=== PATIENT | female | born 1990 | race Caucasian/White ===

== ENCOUNTER 2016-04-11 20:50 | Inpatient (IN) | payer MEDICAID ==
[2016-04-11] MEDS ORDERED: IOPAMIDOL 300 (61%) 100 ML VIAL IV ONE (20:51)
[2016-04-12 00:53] LABS: ABSOLUTE NEUTROPHIL COUNT 16.9 K/mm3 (1.8-7.7); BASO # 0.1 K/mm3 (0.0-0.2); BASO % 0.3 % (0.2-1.0); EOS # 0.3 (0.0-0.5); HEMATOCRIT 37.9 % (37.0-47.0); HEMOGLOBIN 12.3 gm/l (12.0-16.0); IMM NEUT # 0.1 K/mm3 (0-0.2); IMM NEUT% 0.4 % (0-1); LYMPH # 5.5 (1.0-4.8); LYMPH % 22.2 % (15-45); MEAN CELL VOLUME 91.3 fl (81.0-99.0); MEAN CORPUSCULAR HEMOGLOBIN 29.6 pg (27.0-31.0); MEAN CORPUSCULAR HGB CONC 32.5 g/dl (33.0-37.0); MEAN PLATELET VOLUME 9.7 fl (7.4-10.4); MONO # 2.1 (0.0-0.8); MONO % 8.3 % (4-12); NEUT % 67.8 % (43-75); PLATELET COUNT 345 K/mm3 (130-400); RED CELL DISTRIBUTION WIDTH 13.8 % (11.5-14.5)
[2016-04-12 01:06] LABS: ALBUMIN 3.3 gm/dL (3.5-5.7); CALCIUM 10.1 mg/dL (8.6-10.3)
[2016-04-12] MEDS ORDERED: ONDANSETRON 4 MG/2ML 2 ML VIAL ONE (01:10)
[2016-04-12] MEDS ORDERED: CLINDAMYCIN PHOSPHATE 600 MG/4 ML VIAL ONE (01:11)
[2016-04-12] MEDS ORDERED: SODIUM CHLORIDE 0.9% 100 ML IV ONE ×3 (01:12→09:42)
[2016-04-12] MEDS ORDERED: LACTATED RINGERS 1,000 ML ONE (01:17)
[2016-04-12 01:50] LABS: BAND 0 % (0-10); BASOPHIL 1 % (0-1); EOSINOPHIL 0 % (1-3); LYMPHOCYTE 23 % (15-45); MONOCYTE 7 % (4-12); NEUTROPHILS 69 % (43-75); PLATELET ESTIMATE NORMAL (NORMAL); TOTAL CELLS COUNTED 100
[2016-04-12] MEDS ORDERED: HYDROMORPHONE HCL 1 MG/ML SYRINGE ONE (02:20)
[2016-04-12] MEDS ORDERED: VANCOMYCIN HCL 1 G/20 ML VIAL ONE (02:47)
[2016-04-12] MEDS ORDERED: D5W 0 ML IV ONE (02:47)
[2016-04-12] MEDS ORDERED: SODIUM CHLORIDE 0.9% 250 ML IV ONE (02:49)
[2016-04-12] MEDS ORDERED: ONDANSETRON 4 MG/2ML 2 ML VIAL IV PRN (05:01)
[2016-04-12] MEDS ORDERED: ACETAMINOPHEN 325 MG TABLET PO PRN (05:01)
[2016-04-12] MEDS ORDERED: HYDROMORPHONE HCL 1 MG/ML SYRINGE IV PRN (05:01)
[2016-04-12] MEDS ORDERED: BLISTEX LIPSTICK 1 EACH TP PRN ×2 (05:01→07:46)
[2016-04-12] MEDS ORDERED: MENTHOL/CETYLPYRD 1 EACH LOZENGE PO PRN ×2 (05:01→07:46)
[2016-04-12] MEDS ORDERED: PIPERACILLIN SODIUM/TAZOBACTAM 4.5 G VIAL IV ONE (05:09)
[2016-04-12] MEDS ORDERED: SODIUM CHLORIDE 0.9% IV SCH (05:15)
[2016-04-12] MEDS ORDERED: VANCOMYCIN HCL IV SCH (05:15)
[2016-04-12] MEDS ORDERED: DIPHTH,PERTUSS(ACELL),TET VAC 0.5 ML VIAL IM V ONE (05:45)
[2016-04-12 06:08] LABS: SPECIFIC GRAVITY 1.015 (1.001-1.030); URINE BILIRUBIN NEGATIVE (NEGATIVE); URINE BLOOD TRACE (NEGATIVE); URINE GLUCOSE (UA) NEGATIVE (NEGATIVE); URINE LEUKOCYTE ESTERASE TRACE (NEGATIVE); URINE NITRITE NEGATIVE (NEGATIVE); URINE PROTEIN 1+ (NEGATIVE); URINE UROBILINOGEN NORMAL (0-1 mg/dl)
[2016-04-12 06:10] LABS: HCG,QUALITATIVE URINE NEGATIVE; URINE APPEARANCE SL CLOUDY; URINE COLOR YELLOW
[2016-04-12 06:14] LABS: URINE BACTERIA 4+; URINE EPITHELIAL CELLS 20-30 /hpf; URINE WBC 15-20 /hpf
[2016-04-12] MEDS ORDERED: FENTANYL 5 ML ONE (06:51)
[2016-04-12] MEDS ORDERED: EPHEDRINE SULFATE UD SYR 25 MG 25 MG/5 ML SYRINGE IV ONE (07:10)
[2016-04-12] MEDS ORDERED: MORPHINE SULFATE 4 MG/ML SYRINGE IV PRN (07:33)
[2016-04-12] MEDS ORDERED: LORAZEPAM 2 MG/ML 1ML SDV ONE (07:42)
[2016-04-12] MEDS ORDERED: LACTATED RINGERS 1,000 ML IV SCH (07:45)
[2016-04-12] MEDS ORDERED: LORAZEPAM 2 MG/ML 1ML SDV IM PRN (07:46)
[2016-04-12] MEDS ORDERED: LORAZEPAM 2 MG/ML 1ML SDV IV PRN (07:48)
[2016-04-12] MEDS ORDERED: CHLORDIAZEPOXIDE HCL 10 MG CAPSULE PO PRN (07:48)
[2016-04-12] MEDS ORDERED: MULTIVITAMINS 10 ML, FOLIC ACID 2 MG, MAGNESIUM SULFATE 1 G/2 ML 2 G, THIAMINE HCL 100 ... IV SCH ×5 (08:00)
--- NOTE | 2016-04-12 08:20 | CT ---
UPPER EXT W/ CON LT COMPARISON: None HISTORY: 26-year-old female with left arm pain and cellulitis. Past history of intravenous drug abuse. PROCEDURE: Intravenous injection 100 mL Isovue-300 in right antecubital vein. CT images obtained through the left upper extremity. Automated dose reduction software was utilized to minimize radiation dose. Dose information: CTDIvol (mGy): 33.00 DLP (mGy.cm): 1770.80 FINDINGS: Bones: No bone destruction/osteomyelitis. No fracture. Joints: Normal acromioclavicular, glenohumeral, elbow, and wrist joints. Soft tissues: Diffuse edema in the subcutaneous fat, from the shoulder to the wrist. Between the distal biceps and brachioradialis, there is an abscess with rim enhancement extending to the anterior skin surface, up to 3.7 cm AP by 2.9 cm transverse by 5.6 cm craniocaudal IMPRESSION: 1. Abscess between the distal biceps, brachioradialis, and overlying subcutaneous tissue, 3.7 x 2.9 x 5.6 cm. 2. Cellulitis of the left upper extremity. Preliminary report by [facility] radiologist Lalo Thurston M.D. 04/12/2016 at 03:21
--- NOTE | 2016-04-12 08:49 | HP ---
Marleen Vela [id number] ADMIT DATE: April 12, 2016 at 5:20 a.m. HISTORY OF PRESENT ILLNESS: Mrs. Vela a 26-year-old female with a history of heroin use. She presents to the [facility] with symptoms of shooters abscess both in the right upper forearm and evidence of a soft tissue and myositis infection on the left upper extremity. She has a history of IV heroin use, past medical history of lupus as well as a possible history of hepatitis C. Past surgical history includes appendectomy remotely. Possible history of bipolar and anxiety. She presents with a three plus day right arm abscess with left arm swelling and increasing redness over the last 24 to 48 hours. The primary reason for her visit is the pain in the right upper arm with associated fever and vomiting. She states that she awoke with increasing pain, redness, and swelling in the left arm unable to move the elbow. In the emergency department she underwent axial imaging including a CAT scan as well as an ultrasound both which identify a 3 x 4 cm fluid collection and associated myositis in the right upper extremity focused on the region surrounding the elbow consistent with a Shooters abscess. No evidence of osteomyelitis and no evidence of subcutaneous or fascial air suggestive of necrotizing fasciitis. She was initially treated with vancomycin and clindamycin. CURRENT MEDICATIONS: No regular medications with the exception of IV narcotic use. ALLERGIES: No known allergies, although DOES STATE THAT SHE HAS MILD REACTIONS TO PERCOCET AND VICODIN. PHYSICAL EXAMINATION: EXTREMITIES: Mrs. Vela has a significantly swollen left upper quadrant with pain on extension and flexion. The arm is significantly edematous with cellulitis. DIAGNOSTICS: Ultrasound at the bedside reveals a fluid collection in the right upper extremity in the region of the medial portion of the arm. LABORATORIES: Revealed a white count of 25, sodium of 134, mild increase in her ALT at 73. Based on Mrs. Vela finding in the left arm she is certainly at risk for a aggressive soft tissue infection. Plan for a exam under anesthesia and incision and drainage in the operating room with drainage of the fluid collection. She was also placed on piperacillin, tazobactam with an addition of vancomycin and clindamycin for potential control of soft tissue infection. Plan to procedure to the operating room at her earliest convenience. I have also requested a consultation by internal medicine for ongoing workup of potential systemic infection including echo as well as assistance with antibiotic treatment. JOB: [id number]
[2016-04-12] MEDS ORDERED: THIAMINE HCL 100 MG/ML 2ML VIAL IM SCH (09:00)
[2016-04-12] MEDS ORDERED: MULTIVITAMINS 1 TAB TABLET PO SCH (09:00)
[2016-04-12] MEDS ORDERED: FOLIC ACID 1 MG TABLET PO SCH (09:00)
[2016-04-12 09:01] VITALS: BMI 23.2
[2016-04-12] MEDS: D5 1/2NS 1,000 ML IV SCH ×3 (09:21→23:51)
[2016-04-12] MEDS ORDERED: PUMP TUBING ONE ×3 (09:22→22:52)
[2016-04-12] MEDS: SODIUM CHLORIDE 0.9% 100 ML BAG IV SCH ×2 (09:46→22:59)
[2016-04-12] MEDS: CLINDAMYCIN 600 MG PREMIX 600 MG in Premix (D5W) 50 ml 1 EACH IV SCH ×2 (09:49→16:44)
--- NOTE | 2016-04-12 10:20 | OP ---
Henny Vela [id number] DATE OF SERVICE: April 12, 2016 SURGERY TIME: Approximately 6:30 a.m. SURGEON: Dr. Duc Kohler. PREOPERATIVE DIAGNOSIS: Bilateral upper arm extremity abscesses. POSTOPERATIVE DIAGNOSES: 1. Right arm superficial forearm abscess approximately 3 x 3 cm. 2. Left arm approximately 10 x 4 x 3 cm deep abscess extending from the inferior portion of the upper extremity at the region of the antecubital fossa extending down onto the upper forearm. Extensive soft tissue edema. No evidence of muscle necrosis. PROCEDURE PERFORMED: 1. Drainage of abscess, right arm. 2. Drainage of abscess and placement of [place] drain left arm. COMPLICATIONS: None. BLOOD LOSS: Approximately 20 mL bilaterally. CLINICAL INDICATION: Mrs. Vela is a 26-year-old female who presented to the emergency room with extreme left arm pain with sepsis with a white count of 24. Ultrasound and axial imaging revealed an abscess in the subcutaneous tissue extending down to the muscle in the left upper arm. The risks and benefits of surgery for incision and drainage including nerve injury as well as ongoing infection and the need for a return to the operating room were discussed. I also discussed the possibility of necrotizing soft tissue or myositis with Mrs. Vela. The decision was to proceed with exam under anesthesia and incision and drainage bilaterally. The risks and benefits of surgery were explained again in detail. Informed consent was obtained and a consent form was also signed. OPERATION PERFORMED: Mrs. Vela was brought to the operating room and prepped and draped in the usual fashion in the supine position. After getting general anesthetic. Given perioperative antibiotics. She as initially started in the emergency department on piperacillin and vancomycin with the addition of clindamycin for control of possible aggressive soft tissue infection. In the operating room she was free draped both arms. I initially started on the left arm. Left arm was tense related to edema in the soft tissues. I initially placed an 18-Gauge needle into the region of the abscess which was identified on both axial imaging as well as ultrasound. I was able to draw back purulent material via the 18-gauge syringe and a longitudinal incision was made just above the crease at the elbow on the medial portion of the arm just below the bicep. Careful attention was paid to observe the position of the radial, ulnar and median nerves. A scalpel was used to cut down through the subcutaneous tissue into the region of the abscess following the path of the 18-gauge needle. The defect was approximately 2 cm and immediately upon entering the abscessed cavity purulent material was removed. Two swabs were sent to pathology for culture and Gram stain which will allow tailoring of antibiotics. Once the abscess was entered I then removed the 18-gauge needle. I was able to break down a number of attachments and release the internal septations within the abscessed cavity. The abscess again tracked up along the bicep and then down across the crease at the elbow down onto the forearm. I was able to pass a dissector into this region and made a counter incision down in the forearm for placement of a Laurent drain. Again, I broke down multiple adhesions in there with blunt dissection. The cavity was copiously irrigated with warm saline and [place] drain was placed extending through the abscessed cavity exiting at the initial site and the counter incision on the upper forearm. The upper portion of the abscess with a Laurent was packed with Iodoform gauze. The wound was then dressed and covered. At this point, we then turned our attention to the right arm. The right arm had a superficial abscess which was easily visible on the right forearm on the medial aspect. A scalpel was used to incise the abscess. The abscess again was approximately 2 x 2 x 3 cm in size. Immediately upon entering the abscessed cavity purulent material was evacuated, this again was cultured to allow tailoring of antibiotics. The abscessed cavity was copiously irrigated with warm saline and packed Iodoform gauze. Once this was completed the right arm was draped and bandaged. Mrs. Vela was stable through the procedure. She had no complications identified intraoperatively and no complications at the completion of the procedure. She was transported to recovery. Internal medicine is aware and will assist with ongoing addiction management. I did place a alcohol withdraw CIWA protocol. Will also need to have her worked up for IV drug use infection and sepsis, potentially including an echo ruling out of endocarditis. JOB: [id number]
[2016-04-12] MEDS: PIPERACILLIN-TAZO PREMIX BAG 3.375 G in Premix (D5W) 50 ml 1 EACH IV SCH ×3 (10:43→23:00)
[2016-04-12] MEDS ORDERED: MULTIVITAMINS 10 ML, FOLIC ACID 2 MG, MAGNESIUM SULFATE 1 G/2 ML 2 G, THIAMINE HCL 100 ... IV ONE ×5 (12:00)
[2016-04-12 12:32] LABS: AMPHETAMINES/METHAMPHETAMINES POSITIVE (NEGATIVE); COCAINE NEGATIVE (NEGATIVE); MARIJUANA POSITIVE (NEGATIVE); METHADONE NEGATIVE (NEGATIVE); OPIATES POSITIVE (NEGATIVE); TRICYCLIC ANTIDEPRESSANTS NEGATIVE (NEGATIVE)
--- NOTE | 2016-04-12 12:37 | HP ---
Marleen Vela ADMIT DATE: 04/12/2016 CHIEF COMPLAINT: Arm abscess. HISTORY: Marleen is a 26-year-old female with active IV heroin abuse. She presented to the emergency room with about a 48 hour history of rapidly worsening left arm redness, swelling, and pain. She also had swelling and pain in the right arm antecubital fossa area. In the emergency room she was worked up and found to have a fairly large deep abscess in the left upper extremity as well as shallow abscess of the right upper extremity. Surgery was contacted and she was taken straight from the emergency room to the operating room for an incision and drainage of both abscess. Please see Dr. Dcu Kohler's consults notes and operative notes. The hospitalist service subsequently admitted her for management of her other issues in conjunction with postoperative management. REVIEW OF SYSTEMS: Unobtainable as the patient is sedated postoperatively. PAST MEDICAL HISTORY: 1. As per the patient's grandmother might have hepatitis C though, she is not sure. 2. Does have a history of reactive airway disease. 3. Has had seizures in the past though, no true seizure disorder that she knows of. PAST SURGICAL HISTORY: Appendectomy. ALLERGIES: SHE HAS MILD REACTIONS TO PERCOCET AND VICODIN. CURRENT MEDICATIONS: None. SOCIAL HISTORY: Grandmother states that at this point she is homeless, has been staying in empty houses at various places. She does have active IV heroin use as well as meth and pot. No recent alcohol use as per the grandmother. The patient's mother is homeless in [place] as well. There is really no other family in the area. FAMILY HISTORY: Otherwise noncontributory. OBJECTIVE: VITAL SIGNS: Temperature 97.9, pulse 112, blood pressure 156/90, respirations 14, O2 sat 99% on room air. GENERAL: This is a well developed, well nourished young female. She is somnolent in the postoperative period, but in no acute distress. HEENT: Benign. LUNGS: Clear. HEART: Regular. ABDOMEN: Soft. EXTREMITIES: Upper extremities with surgical dressings clean, dry, and intact. I did not remove them. Lower extremities with no edema. ASSESSMENT: 1. Bilateral upper extremity abscesses secondary to IV heroin abuse, left sided abscess is significantly larger and deeper than the right. She is now status post surgical incision and drainage of both done by Dr. Kohler of general surgery. 2. Active heroin use as well as a long history of polydrug abuse. 3. Suboptimal psychosocial situation. 4. Questionable seizure disorder. 5. Questionable alcoholism in the past, history is unclear. PLAN: We will await blood and wound cultures. In the meantime she was placed on Zosyn, vancomycin, and clindamycin. Postoperative wound care as per surgery. We will get social work evaluation when she wakes up. We will forgo deep venous thrombosis prophylaxis at this point as she is immediately postoperative and there is a very good chance she may need to return to surgery tomorrow or the next day. Given the concern about seizures and possible polydrug/alcohol use I have gone ahead and placed her on CIWA protocol with IV Ativan as needed. Support care otherwise. Further care is dictated by clinical course. JOB: [id number]
[2016-04-12] MEDS: KETOROLAC TROMETHAMINE 30 MG/ML 1 ML VIAL IV PRN ×2 (12:50→19:55)
[2016-04-12] MEDS: VANCOMYCIN HCL 1.25 G in SODIUM CHLORIDE 0.9% 250 ML IV SCH (13:20)
[2016-04-12] MEDS: Heparin Sodium 5000 unit/0.5ml syringe SUB-Q SCH ×2 (15:07→22:58)
[2016-04-12] MEDS: PANTOPRAZOLE 40 MG TABLET DR PO SCH (15:18)
[2016-04-12] MEDS: OXYCODONE HCL 5 MG TABLET PO PRN (19:55)
[2016-04-13] MEDS: CLINDAMYCIN 600 MG PREMIX 600 MG in Premix (D5W) 50 ml 1 EACH IV SCH ×2 (01:34→09:08)
[2016-04-13] MEDS: OXYCODONE HCL 5 MG TABLET PO PRN ×2 (01:37→05:06)
[2016-04-13] MEDS: VANCOMYCIN HCL 1.25 G in SODIUM CHLORIDE 0.9% 250 ML IV SCH ×2 (03:12→14:26)
[2016-04-13] MEDS ORDERED: Heparin Sodium 5000 unit/0.5ml syringe SUB-Q SCH (04:00)
[2016-04-13] MEDS: PIPERACILLIN-TAZO PREMIX BAG 3.375 G in Premix (D5W) 50 ml 1 EACH IV SCH ×2 (05:06→10:59)
[2016-04-13] MEDS: Heparin Sodium 5000 unit/0.5ml syringe SUB-Q SCH ×2 (06:13→15:19)
[2016-04-13] MEDS: LORAZEPAM 2 MG/ML 1ML SDV IV PRN ×2 (07:18→16:04)
[2016-04-13] MEDS: D5 1/2NS 1,000 ML IV SCH ×3 (07:49→16:31)
[2016-04-13] MEDS ORDERED: NICOTINE 14 MG PATCH 1 EACH TD SCH (08:00)
[2016-04-13 08:33] LABS: ABSOLUTE NEUTROPHIL COUNT 7.6 K/mm3 (1.8-7.7); BASO % 0.3 % (0.2-1.0); EOS # 0.3 (0.0-0.5); EOS % 2.2 % (0.9-2.9); HEMATOCRIT 30.7 % (37.0-47.0); HEMOGLOBIN 9.8 gm/l (12.0-16.0); IMM NEUT # 0.1 K/mm3 (0-0.2); IMM NEUT% 0.4 % (0-1); LYMPH # 2.9 (1.0-4.8); LYMPH % 24.9 % (15-45); MEAN CELL VOLUME 92.2 fl (81.0-99.0); MEAN CORPUSCULAR HEMOGLOBIN 29.4 pg (27.0-31.0); MEAN CORPUSCULAR HGB CONC 31.9 g/dl (33.0-37.0); MEAN PLATELET VOLUME 9.3 fl (7.4-10.4); MONO % 8.4 % (4-12); NEUT % 63.8 % (43-75); PLATELET COUNT 296 K/mm3 (130-400); RED CELL DISTRIBUTION WIDTH 14.1 % (11.5-14.5)
[2016-04-13 08:52] LABS: ALB/GLOB RATIO 0.8 (>1.0); ALBUMIN 2.3 gm/dL (3.5-5.7); CALCIUM 7.9 mg/dL (8.6-10.3); MAGNESIUM 2.2 mg/dL (1.9-2.7)
[2016-04-13] MEDS ORDERED: FOLIC ACID 1 MG TABLET PO SCH (09:00)
[2016-04-13] MEDS ORDERED: MULTIVITAMINS 1 TAB TABLET PO SCH (09:00)
[2016-04-13] MEDS ORDERED: THIAMINE HCL 100 MG TABLET PO SCH (09:00)
[2016-04-13] MEDS: PANTOPRAZOLE 40 MG TABLET DR PO SCH (09:15)
[2016-04-13] MEDS ORDERED: PUMP TUBING ONE (10:52)
[2016-04-13] MEDS: SODIUM CHLORIDE 0.9% 100 ML BAG IV SCH (10:59)
[2016-04-13] MEDS: KETOROLAC TROMETHAMINE 30 MG/ML 1 ML VIAL IV PRN (11:32)
--- NOTE | 2016-04-13 13:20 | TS ---
JOSSY ZUÑIGA [id number] DATE OF ADMISSION: April 12, 2016 DATE OF DISCHARGE: April 13, 2016 HOSPITAL COURSE: Ms. Zuñiga is a 26-year-old female admitted to [facility] approximately 36 hours ago with sepsis and shooter's abscess in both upper extremities. Upon admission to the emergency department, her white count was 25. She had evidence of sepsis. She had a small 3 x 3 cm superficial shooter abscess in the right forearm. Within the left arm she had significant edema in the upper portion of the extremity extending down to the forearm. The hand appeared to be normal. She had excellent pulses palpable both the ulnar and radial arteries. In the region of the elbow she had what appeared to be cellulitis as well as an abscess just above the crease of the antecubital fossa. She underwent axial imaging of the arm which revealed a myositis as well as a soft tissue infection and a contained abscess just above the elbow in the region of the bicep on the medial portion of the arm. Based on this abscess and her increasing pain in the arm with flexion, the decision was made to proceed with an emergency incision and drainage. Ms. Zuñiga who has no significant past medical history with the exception of her psychiatry issues as well as her ongoing addiction to illicit substances, was brought to the operating room for an incision and drainage. The right forearm abscess was drained with incision and drainage. The left arm, a needle was placed in the abscess identifying the region of purulent material. An incision was made. The abscess cavity was irrigated and debrided. The abscess cavity extended down over the crease of the elbow down into the forearm on the medial portion. I was able to dissect this bluntly and a counter incision was made with a Laurent positioned in this area. A pack was placed. In the 24 hours postoperative, Ms. Zuñiga has done reasonably well. Her sepsis appears to be controlled. Her white count has dropped from 25 to 11. She was initially placed upon her admission into the emergency department on piperacillin, vancomycin and clindamycin. She was continued on those antibiotics in the postoperative setting. At this point, I examined Ms. Zuñiga this morning. She has decreased swelling of the upper portion of the left upper arm. Her cellulitis has improved significantly. Packing was removed from the drain. The Laurent remained in place. The increased concern this morning was related to her forearm. She has increased edema and swelling within the forearm with the maximal tenderness in the flexor portion of the arm. She has also increased edema and swelling in the hand. I asked Dr. Rodriguez to evaluate from orthopedic surgery for possible compartment syndrome. Obviously she is at risk for compartment syndrome, but Dr. Rodriguez felt that she did not have symptoms of compartment syndrome at this point. She does have again, high risk for developing compartment syndrome and may, in fact, have infection related into the muscles and fascia of the flexor compartment. Based on this, I requested a transfer to [facility]. I spoke to a eneida resident on the orthopedic service at [facility] who placed the patient on a wait list for transfer. Dr. Rodriguez has made a contact with a plastic surgeon who specializes in hands at [facility]. We will await his call back but plan transfer to a higher level of care as soon as appropriate service becomes available.
--- NOTE | 2016-04-13 13:29 | PDOC43 ---
- Subjective Chief Complaint: arm abscess Subjective: Reports Pain Tolerable (with morphine), Reports Tolerating Diet Well , Denies Fever - Objective Vital Signs Temperature 98.0 F 04/13/16 11:46 Pulse Rate 67 04/13/16 11:46 Respiratory Rate 20 04/13/16 11:46 Blood Pressure 147/90 04/13/16 11:46 O2 Saturation by Pulse Oximetry 98 04/13/16 11:46 Oxygen Delivery Method Room Air Oxygen Flow Rate 0 Intake and Output 04/12/16 04/13/16 04/14/16 06:59 06:59 06:59 Intake Total 5241 Output Total 1380 Balance 3861 General: Alert, Cooperative, Moderate Distress HEENT: Mucous membr. moist/pink Lungs: Clear to Auscultation Bilaterally Cardiovascular: Regular Rate and Rhythm Abdomen: Soft, Normal Bowel Sounds, Non-Distended, No Tenderness Extremities: Other (left axillary dressing-appears clean) Laboratory 04/13/16 08:20 04/13/16 08:20 04/13/16 08:20 RBC 3.33 L MCHC 31.9 L Calcium 7.9 L AST 41 H ALT 56 H Total Protein 5.3 L Albumin 2.3 L Albumin/Globulin Ratio 0.8 L Current Medications: Current meds reviewed in EMR. - Problems: Assessment/Plan (1) Abscess Status: Acute Assessment/Plan: of left axilla and right arm, covered with Zosyn, Clindamycin and Vancomycin- await Cx results, Surgery working to transfer patient for evaluation by hand specialist (2) Polysubstance (excluding opioids) dependence Status: Acute Assessment/Plan: ongoing with meth., alcohol, heroin and marijuana-[facility] protocol, social service agency director working with patient VTE Prophylaxis: IPCs and SC heparin Disposition: Transfer pending bed availability
[2016-04-13 16:00] VITALS: BP 138/84
[2016-04-13] MEDS ORDERED: IOPAMIDOL 300 (61%) 100 ML VIAL IV ONE (16:24)
== END 2016-04-13 16:25 | disposition short-term general hospital (02) | DRG 872 ==
LOC: ED 20:50 → SUPCPDRO 20:50 → SDC 04-12 04:49 → MS 04-12 05:09 → SDC 04-12 07:43 → MS 04-12 07:44
PROVIDERS: ADMIT Surgery; ATTEND Surgery
PROC: 0H9CXZZ Drainage of Left Upper Arm Skin, External Approach (ICD-10-PCS; principal; 2016-04-12)
PROC: 0H9BXZZ Drainage of Right Upper Arm Skin, External Approach (ICD-10-PCS; 2016-04-12)
DX: A41.9 Sepsis, unspecified organism (principal); L02.414 Cutaneous abscess of left upper limb; L02.413 Cutaneous abscess of right upper limb; F11.20 Opioid dependence, uncomplicated; F15.20 Other stimulant dependence, uncomplicated; T79.A12A Traumatic compartment syndrome of left upper extremity, initial encounter; F12.20 Cannabis dependence, uncomplicated; Z59.0 Homelessness; X58.XXXA Exposure to other specified factors, initial encounter